=== PATIENT | male | born 1995 | race African-American/Black ===

== ENCOUNTER 2019-05-09 19:31 | Emergency (ER) | payer SELFPAY ==
[~2019-05-09] VITALS: Ht 182.9 cm; Wt 77.1 kg
[2019-05-09 19:53] LABS: Urine WBC None Seen /hpf (0 - 3)
[2019-05-09 20:12] LABS: Basophils # (auto) 0 uL; Basophils % (auto) 0.9 % (0.0-2.0); Eosinophils # (auto) 0.1 uL; Eosinophils % (auto) 2.3 % (0.0-7.0); Hematocrit 39.6 % (41.0-53.0); Lymphocytes # (auto) 1.8 uL; Lymphocytes % (auto) 53.4 % (10.0-50.0); Mean Corpuscular Hemoglobin 28.3 pg (28.0-32.0); Mean Corpuscular Hgb Conc. 32.9 g/dL (32.0-36.0); Mean Corpuscular Volume 85.8 fL (80.0-100.0); Monocytes # (auto) 0.4 uL; Monocytes % (auto) 12.8 % (0.0-12.0); Neutrophils % (auto) 30.6 % (37.0-80.0); Nucleated Red Blood Cells % 0.1 %; Platelet Count (auto) 165 10^3/uL (140-450); Red Blood Cells 4.61 10^6/uL (4.5-5.90); Red Cell Distribution Width 12.6 % (11.8-14.3); White Blood Cell 3.3 10^3/uL (4.4-10.8)
[2019-05-09 20:26] LABS: Albumin 3.7 g/dL (3.4-5.0); Calcium 7.9 mg/dL (8.5-10.1); Potassium 3.5 mmol/L (3.5-5.1)
[2019-05-09 20:28] LABS: BUN/Creatinine Ratio 9.7; Bilirubin, Total 0.2 mg/dL (0.2-1.0); Total Protein 6.7 g/dL (6.4-8.2)
[2019-05-09] MEDS ORDERED: LORazepam 2MG/ML-1ML VIAL IV ONE (20:30)
[2019-05-09] MEDS ORDERED: SODIUM CHLORIDE 0.9% 3,000 ML IV ONE (20:30)
[2019-05-09 20:34] LABS: Urine Bacteria NONE SEEN /hpf (None Seen); Urine Blood TRACE /uL (Negative); Urine Specific Gravity 1.002 (1.001-1.035)
[2019-05-09 20:44] LABS: Amphetamine Screen, Urine NEGATIVE (NEGATIVE); Barbiturate Scree,Urine NEGATIVE (NEGATIVE); Benzodiazephine Screen, Urine NEGATIVE (NEGATIVE); Cannabinoid Screen, Urine NEGATIVE (NEGATIVE); Cocaine Screen, Urine NEGATIVE (NEGATIVE); Opiate Scree,Urine NEGATIVE (NEGATIVE); Phencyclidine Screen, Urine NEGATIVE (NEGATIVE)
[2019-05-09 21:22] LABS: INR 1.02 (0.9-1.15); Partial Thromboplastin Time 30.1 sec (23.64-32.05)
[2019-05-10] MEDS ORDERED: LIDOCAINE 2%HCL (LOCAL ANESTH.) INJ 20ML MDV ONE (00:24)
[2019-05-10] MEDS ORDERED: LIDOCAINE 2%HCL (LOCAL ANESTH.) INJ 10ml MDV IJ ONE (00:30)
[2019-05-10] MEDS ORDERED: LIDOCAINE W/ EPINEPHRINE 2% INJ 20ML VIAL IJ ONE (00:30)
[2019-05-10] MEDS ORDERED: TETANUS-DIPTH-ACEL PERTUSSIS 0.5ML SYRG IM ONE (01:00)
[2019-05-10 01:30] VITALS: BP 115/75
== END 2019-05-10 01:54 | disposition home or self-care (01) ==
LOC: EDBD 19:31 → ER 19:36 → EDBD 19:36 → ER 05-10 01:54
DX: S01.81XA Laceration without foreign body of other part of head, initial encounter (principal); F12.10 Cannabis abuse, uncomplicated; W22.8XXA Striking against or struck by other objects, initial encounter; Y93.89 Activity, other specified; Y99.8 Other external cause status; Y92.89 Other specified places as the place of occurrence of the external cause
CPT/HCPCS: 12013; 36415; 70450; 70486; 80053; 80307; 81001; 85025; 85610; 85730; 86850; 86900; 86901; 90471; 90715; 96374; 99284; J2001; J2060; J7030